=== PATIENT | male | born 1985 | race African-American/Black ===

== ENCOUNTER 2017-12-21 13:23 | Emergency (ER) | payer OTHER ==
[2017-12-21] MEDS ORDERED: Dexamethasone 4 mg/ml Vial ONE (14:30)
[2017-12-21] MEDS ORDERED: Bicillin LA 1.2 MILLION UNITS/2 ML SYRINGE ONE (14:30)
== END 2017-12-21 14:50 | disposition home or self-care (01) ==
LOC: ERS 13:23
DX: J02.0 Streptococcal pharyngitis (principal)
CPT/HCPCS: 87430; 96372; J0561; J1100